=== PATIENT | male | born 2005 | race Caucasian/White ===

== ENCOUNTER 2025-05-16 12:10 | Emergency (ER) | payer SELFPAY ==
[~2025-05-16] VITALS: Ht 167.6 cm; Wt 65.8 kg
[2025-05-16] MEDS ORDERED: Tdap Vaccine 0.5 ML SYR (Adult Vaccine) IM ONE (12:30)
[2025-05-16] MEDS ORDERED: CEPHALEXIN500 M1 PO (12:34)
[2025-05-16] MEDS ORDERED: Lidocaine Hydrochloride 30 ML VIAL IM ONE (12:40)
== END 2025-05-16 13:34 | disposition home or self-care (01) ==
LOC: ED 12:10
DX: S61.210A Laceration without foreign body of right index finger without damage to nail, initial encounter (principal); R55 Syncope and collapse; W26.8XXA Contact with other sharp object(s), not elsewhere classified, initial encounter; Y93.89 Activity, other specified; Y92.89 Other specified places as the place of occurrence of the external cause; Y99.8 Other external cause status

== ENCOUNTER 2025-05-26 17:15 | Emergency (ER) | payer SELFPAY ==
[~2025-05-26] VITALS: Ht 167.6 cm; Wt 66.2 kg
[~2025-05-26 17:15] MED LIST: CEPHALEXIN500 M1 PO
== END 2025-05-26 18:58 | disposition home or self-care (01) ==
LOC: ED 17:15
DX: S61.210D Laceration without foreign body of right index finger without damage to nail, subsequent encounter (principal); X58.XXXD Exposure to other specified factors, subsequent encounter